=== PATIENT | male | born 1985 | race Caucasian/White ===

== ENCOUNTER 2016-04-18 18:11 | Emergency (ER) | payer MEDICAID ==
[~2016-04-18] VITALS: Ht 190.5 cm; Wt 112.3 kg
[~2016-04-18 18:11] MED LIST: AMOX500T PO; ZANT150T2 PO
[2016-04-18 18:20] VITALS: BP 141/77; PULSE 76; RESP 16; TEMP 98; O2SAT 98
--- NOTE | 2016-04-19 14:29 | EKG ---
Date Performed: 04/18/2016 Time Performed: 18:22:16 PTAGE: 30 years EKG: Sinus rhythm Normal ECG NO PREVIOUS TRACING DOCTOR: Mitch Macdonald Interpretating Date/Time 04/19/2016 14:26:41
== END 2016-04-18 20:05 | disposition left against medical advice (07) ==
LOC: PHED 18:11
DX: R05 Cough (principal); F17.200 Nicotine dependence, unspecified, uncomplicated
CPT/HCPCS: 93005; 99281

== ENCOUNTER 2016-06-20 18:47 | Emergency (ER) | payer MEDICAID ==
[~2016-06-20] VITALS: Ht 190.5 cm; Wt 112.0 kg
[2016-06-20 18:57] VITALS: BP 119/75; PULSE 78; RESP 16; TEMP 98.5; O2SAT 96
--- NOTE | 2016-06-20 20:39 | PD ---
HPI Chief Complaint: Injury Time Seen by Provider: 20:37 Travel History International Travel<30 days: No Contact w/Intl Traveler<30days: No Traveled to known affect area: No History of Present Illness HPI Patient comes in complaining of right hand pain after punching a 2 x 4 shortly prior to arrival. Patient states he was trying show this child how to throw punch when he hit 2 x 4. Patient applied ice prior coming emergency department. Patient uncertain of his last shot. Patient reports aching pain over his third metacarpophalangeal joint right upper extremity that radiates proximally. Pain is worse with certain movement and palpation. Denies any numbness or tingling. PFSH Past Medical History Diminished Hearing: No Gastrointestinal Disorders: Yes (IBS) GERD: Yes Immunizations Current: Yes Tetanus Vaccination: Unknown Influenza Vaccination: No ?: Not Social History Alcohol Use: Yes (RARE) Tobacco Use: Yes (2 PPD) Substance Use: No Allergies-Medications (Allergen,Severity, Reaction): Coded Allergies: Nonsteroidal Anti-Inflammatory Agts (Verified Adverse Reaction, Severe, HAS IBS AND NOT SUPPOSE TO TAKE, 06/20/16) Reported Meds & Prescriptions Reported Meds & Active Scripts Active Zantac (Ranitidine HCl) 150 Mg Tab 150 Mg PO BID Reported Amoxicillin 500 Mg Tab 500 Mg PO BID Review of Systems Except as stated in HPI: all other systems reviewed are Neg Physical Exam Narrative GENERAL: Well-developed, well nourished, in no acute distress, and non-ill appearing. SKIN: Superficial abrasion noted over right hand third knuckle. Does not appear consistent with a fight bite. HEAD: Atraumatic. Normocephalic. EYES: Pupils equal and round. EOMI. No scleral icterus. No injection or drainage. ENT: No nasal bleeding or discharge. Mucous membranes pink and moist. NECK: Trachea midline. Supple. No nuclear rigidity. CARDIOVASCULAR: Radial pulses 2+, tach, and equal bilaterally. Capillary refill less than 2 seconds. RESPIRATORY: No accessory muscle use. No respiratory distress MUSCULOSKELETAL: No obvious deformities. No clubbing. No cyanosis. No edema. Full range of motion. Wrist: FROM and equal BL with passive flexion, extension, and pronation/supination. Capillary refill less than 2 seconds distal to injury and equal BL. FROM distal to injury and equal BL. Strength distal to injury equal BL. NV intact distal to injury. Flexion and extension of thumb equal BL. Equal strength and movement with abduction/adductions of BL fingers. 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 No tenderness to the anatomical snuffbox. Patient reports tenderness to palpation over right upper extremity third metacarpophalangeal joint. NEUROLOGICAL: Awake and alert. No obvious cranial nerve deficits. Motor grossly within normal limits. Normal speech. PSYCHIATRIC: Appropriate mood and affect; insight and judgment normal. Data Data Last Documented VS Vital Signs Date Time Temp Pulse Resp B/P Pulse Ox O2 Delivery O2 Flow Rate FiO2 06/20/16 18:57 98.5 78 16 119/75 96 Orders Hand, Complete ([id number]) (06/20/16 ) Ice/Cold Pack (06/20/16 20:03) Wound Care (06/20/16 20:39) Tetanus/Diphtheria Tox Adult (Tetanus/Di (06/20/16 20:45) MDM Medical Decision Making Medical Screen Exam Complete: Yes Emergency Medical Condition: Yes Differential Diagnosis Fracture, strain, contusion, other Narrative Course The patient appears to have suffered a contusion of the extremity. There is no clinical evidence to suspect bony injury by exam. Radiographic examination revealed no fracture seen at this time. The patient has full range of motion on active and passive motions. There is no significant edema. There is no proximal or distal joint effusion. The distal extremity appears neurovascularly intact, without evidence of neurovascular injury nor compartment syndrome. Tendon exam also was intact. The patient was discharged and given warnings for vascular compromise. The patient is to follow up with their regular physician or hand surgeon. The patient agrees with plan. The patient suffered abrasion. The abrasions are very superficial and non- repairable. There was no evidence to suggest foreign bodies. Visual and tactile exams were unremarkable. There was no evidence of neurovascular injury as well. The patients wound/s were cleaned and dressed. The patient was given signs and symptom warnings for infection, such as increasing pain, redness, swelling, associated heat, pus or fever. The patient was given instructions for timely follow up. The patient agreed with plan of care. Patient in no obvious distress upon re-evaluation. All pertinent Radiology result(s) discussed with patient. Any questions/concerns in reference to patient diagnosis/condition discussed and clarified prior to patient's discharge. Reinforced sheer importance of close follow up with patient's primary physician or primary care clinic and/or hand surgeon. Instructed patient to return to ED immediately, if symptoms return/worsen. Pt showed understanding of above instructions. Further instructions and recommendations were detailed in discharge paperwork. Pt ambulated without difficulty out of ED at discharge. Diagnosis Primary Impression: Contusion of right hand, initial encounter Additional Impression: Abrasion Referrals: Ramiro Larios III, MD Patient Instructions: Abrasion (GEN), Contusion in Adults (ED), General Instructions Additional Instructions: Follow-up with your primary care physician and/or hand surgeon in 2-3 days for reevaluation. Apply ice to affected area 20 minutes prior to his needed for pain. Use [id number] Tylenol as needed for pain. Follow instructions on the packaging. Wear German wrap as needed for comfort. Keep wound dry and clean as possible using soap and water. Use Neosporin to promote healing. Return to the emergency department if symptoms get worse. Disposition: 01 DISCHARGE HOME Condition: Stable Chuy Browne Jun 20, 2016 20:39
[2016-06-20] MEDS ORDERED: TETANUS/DIPHTHERIA TOXOID ADULT 0.5 ML VIAL IM ONE (20:45)
--- NOTE | 2016-06-20 21:21 | RADHPO ---
EXAM DATE/TIME: 06/20/2016 20:43 [facility] COMPARISON: No previous studies available for comparison. INDICATIONS : Right hand pain from injury today. MEDICAL HISTORY : Irritable bowel syndrome. SURGICAL HISTORY : None. ENCOUNTER: Initial ACUITY: 1 day PAIN SCORE: 8/10 LOCATION: Right Hand FINDINGS: Three view examination of the right hand demonstrates no soft tissue swelling, dislocation, or fractu re. The carpal bones appear intact. The interphalangeal and metacarpophalangeal joints are intact. Bony mineralization is normal. CONCLUSION: Negative exam. Denny Rowland MD on June 20, 2016 at 21:19 Board Certified Radiologist. This report was verified electronically.
== END 2016-06-20 21:36 | disposition home or self-care (01) ==
LOC: PHED 18:47 → PHEFT 21:36
DX: S60.221A Contusion of right hand, initial encounter (principal); S60.511A Abrasion of right hand, initial encounter; F17.210 Nicotine dependence, cigarettes, uncomplicated; Z23 Encounter for immunization; K21.9 Gastro-esophageal reflux disease without esophagitis; K58.9 Irritable bowel syndrome, unspecified; W22.8XXA Striking against or struck by other objects, initial encounter; Y93.89 Activity, other specified; Y92.9 Unspecified place or not applicable; Y99.8 Other external cause status
CPT/HCPCS: 73130; 90471; 90714

== ENCOUNTER 2016-08-09 10:48 | Emergency (ER) | payer MEDICAID ==
[~2016-08-09] VITALS: Ht 190.5 cm; Wt 112.0 kg
[2016-08-09 10:51] VITALS: BP 129/82; PULSE 76; RESP 16; TEMP 97.8; O2SAT 97
--- NOTE | 2016-08-09 11:25 | PD ---
HPI Chief Complaint: Headache Time Seen by Provider: 11:12 Travel History International Travel<30 days: No Contact w/Intl Traveler<30days: No Traveled to known affect area: No History of Present Illness HPI 30yo M with no PMH presents to the ED with c/o right sided headache for 3 days. Pain is right sided, starts from occipital region and radiates to the front. States it is constant. +Photophobia. Feels sharp. Right arm also feels weaker than left arm. Denies any fever, stiff neck, chest pain, sob, n/v, abdominal pain, weakness in leg, or numbness. Took acetaminophen without relief. PFSH Past Medical History Diminished Hearing: No Gastrointestinal Disorders: Yes (IBS) GERD: Yes Immunizations Current: Yes Social History Alcohol Use: Yes (RARE) Tobacco Use: Yes (1PPD) Substance Use: No Allergies-Medications (Allergen,Severity, Reaction): Coded Allergies: Nonsteroidal Anti-Inflammatory Agts (Verified Adverse Reaction, Severe, HAS IBS AND NOT SUPPOSE TO TAKE, 08/09/16) Reported Meds & Prescriptions Reported Meds & Active Scripts Active No Active Prescriptions or Reported Medications Review of Systems Except as stated in HPI: all other systems reviewed are Neg Physical Exam Narrative GENERAL: 30yo M in mild distress. SKIN: Focused skin assessment warm/dry. HEAD: Atraumatic. Normocephalic. EYES: Pupils equal and round at 3mm bilaterally. EOMI. No scleral icterus. No injection or drainage. ENT: No nasal bleeding or discharge. Mucous membranes pink and moist. NECK: Trachea midline. No JVD. CARDIOVASCULAR: Regular rate and rhythm. No murmur appreciated. RESPIRATORY: No accessory muscle use. Clear to auscultation. Breath sounds equal bilaterally. GASTROINTESTINAL: Abdomen soft, non-tender, nondistended. MUSCULOSKELETAL: No obvious deformities. No clubbing. No cyanosis. No edema. NEUROLOGICAL: Awake and alert. No obvious cranial nerve deficits. Motor grossly within normal limits. 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 No weakness in right leg. Sensation intact. Normal speech. PSYCHIATRIC: Appropriate mood and affect; insight and judgment normal. Data Data Last Documented VS Vital Signs Date Time Temp Pulse Resp B/P Pulse Ox O2 Delivery O2 Flow Rate FiO2 08/09/16 10:51 97.8 76 16 129/[address] Brain W/O Iv Contrast(Rout) (08/09/16 ) Prochlorperazine Inj (Compazine Inj) (08/09/16 11:30) MDM Medical Decision Making Medical Screen Exam Complete: Yes Emergency Medical Condition: Yes Differential Diagnosis Migraine headache vs. tension headache vs. cluster headache vs. intracranial mass Narrative Course 30yo M with right sided headache that sounds like migraine or tension headache. Pt given compazine 10mg IV and reevaluated at bedside. States headache has completely resolved. Right side weakness has resolved as well. CT brain negative. Explained to patient that I have low suspicion for subarachnoid hemorrhage but I cannot rule it out without lumbar puncture because the headache has been there for 3 days ago. Pt refusing lumbar puncture. Strict return precautions given. Diagnosis Primary Impression: Headache Qualified Code: R51 - Acute nonintractable headache, unspecified headache type Patient Instructions: General Instructions Departure Forms: Tests/Procedures Additional Instructions: Please follow up with your PMD. Return to the ED if headache returns. Med/Other Pt SpecificInfo: No Change to Meds Scripts No Active Prescriptions or Reported Meds Disposition: 01 DISCHARGE HOME Condition: Stable WheelerEvelyne MARTINS Aug 09, 2016 11:25
[2016-08-09] MEDS ORDERED: PROCHLORPERAZINE INJ 10 MG/2 ML VIAL IV PUSH ONE (11:30)
--- NOTE | 2016-08-09 11:52 | RADHPO ---
EXAM DATE/TIME: 08/09/2016 11:34 [facility] COMPARISON: CT BRAIN W/O CONTRAST, October 22, 2013, 19:19. INDICATIONS : Right sided headache. RADIATION DOSE: 65.23 CTDIvol (mGy) MEDICAL HISTORY : Gastroesophageal reflux disease. SURGICAL HISTORY : None. ENCOUNTER: Initial ACUITY: 1 day PAIN SCALE: 4/10 LOCATION: Right cranial TECHNIQUE: Multiple contiguous axial images were obtained of the head. Using automated exposure control and adj ustment of the mA and/or kV according to patient size, radiation dose was kept as low as reasonably a chievable to obtain optimal diagnostic quality images. FINDINGS: CEREBRUM: The ventricles are normal for age. No evidence of midline shift, mass lesion, hemorrhage or acute in farction. No extra-axial fluid collections are seen. POSTERIOR FOSSA: The cerebellum and brainstem are intact. The 4th ventricle is midline. The cerebellopontine angle i s unremarkable. EXTRACRANIAL: The visualized portion of the orbits is intact. SKULL: The calvaria is intact. No evidence of skull fracture. CONCLUSION: No acute disease. Rashel Arguello MD on August 09, 2016 at 11:49 Board Certified Radiologist. This report was verified electronically.
== END 2016-08-09 12:48 | disposition home or self-care (01) ==
LOC: PHEFT 10:48
DX: R51 Headache (principal); F17.210 Nicotine dependence, cigarettes, uncomplicated
CPT/HCPCS: 70450; 96374; 99285; J0780

== ENCOUNTER 2016-08-18 18:50 | Emergency (ER) | payer MEDICAID ==
[~2016-08-18] VITALS: Ht 190.5 cm; Wt 113.0 kg
[2016-08-18 19:25] VITALS: BP 131/80; PULSE 67; RESP 18; TEMP 98.2; O2SAT 97
[2016-08-18] MEDS ORDERED: SODIUM CHLOR 0.9% 1000 ML INJ 1,000 ML IV SCH (20:09)
[2016-08-18] MEDS ORDERED: METOCLOPRAMIDE HCL 10 MG/2 ML VIAL IV PUSH ONE (20:15)
[2016-08-18] MEDS ORDERED: SODIUM CHLORIDE 0.9% FLUSH 10 ML FLUSH IV FLUSH PRN (20:15)
--- NOTE | 2016-08-18 20:16 | PD ---
HPI Chief Complaint: Headache Time Seen by Provider: 20:04 Travel History International Travel<30 days: No Contact w/Intl Traveler<30days: No Traveled to known affect area: No History of Present Illness HPI 30-year-old male here for evaluation of headache and neck pain. The patient reports that symptoms started about a week ago while having intercourse with his girlfriend. States that his pain starts in his neck and radiates up into his head. Pain in his head is diffuse, but right is greater than left, sharp and pressure-like, moderate to severe. Pain is associated with photophobia. He has been taking Tylenol without relief in pain. Chart review shows that the patient was seen in the emergency department on 08/09/[address] head which was normal. He was given Compazine at that time with complete resolution in symptoms. The ER physician at that time told him that she would need to do a lumbar puncture to rule out subarachnoid bleed. The patient declined LP at that time. He has not had any fevers. PFSH Past Medical History Diminished Hearing: No Gastrointestinal Disorders: Yes (IBS) GERD: Yes Immunizations Current: Yes Tetanus Vaccination: < 5 Years Influenza Vaccination: No ?: Not Past Surgical History Surgical History: No Previous Surgery Social History Alcohol Use: Yes (RARE) Tobacco Use: Yes (1PPD) Substance Use: No Allergies-Medications (Allergen,Severity, Reaction): Coded Allergies: Nonsteroidal Anti-Inflammatory Agts (Verified Adverse Reaction, Severe, HAS IBS AND NOT SUPPOSE TO TAKE, 08/18/16) Reported Meds & Prescriptions Reported Meds & Active Scripts Active No Active Prescriptions or Reported Medications Review of Systems Except as stated in HPI: all other systems reviewed are Neg Physical Exam Narrative GENERAL: Well-developed, well-nourished, no apparent distress. SKIN: Focused skin assessment warm/dry. No petechiae. No rash. HEAD: Atraumatic. Normocephalic. EYES: Pupils equal and round. No scleral icterus. No injection or drainage. ENT: No nasal bleeding or discharge. Mucous membranes pink and moist. NECK: Trachea midline. No JVD. No nuchal rigidity. CARDIOVASCULAR: Regular rate and rhythm. No murmur appreciated. RESPIRATORY: No accessory muscle use. Clear to auscultation. Breath sounds equal bilaterally. GASTROINTESTINAL: Abdomen soft, non-tender, nondistended. MUSCULOSKELETAL: No obvious deformities. No clubbing. No cyanosis. No edema. NEUROLOGICAL: Awake and alert. No obvious cranial nerve deficits. Motor grossly within normal limits. Normal speech. PSYCHIATRIC: Appropriate mood and affect; insight and judgment normal. Data Data Last Documented VS Vital Signs Date Time Temp Pulse Resp B/P Pulse Ox O2 Delivery O2 Flow Rate FiO2 08/18/16 20:17 96 Room Air 08/18/16 19:25 98.2 67 18 131/80 Orders Complete Blood Count With Diff (08/18/16 20:09) Comprehensive Metabolic Panel (08/18/16 20:09) Prothrombin Time / Inr (Pt) (08/18/16 20:09) Act Partial Throm Time (Ptt) (08/18/16 20:09) Iv Access Insert/Monitor (08/18/16 20:09) Ecg Monitoring (08/18/16 20:09) Oximetry (08/18/16 20:09) Sodium Chlor 0.9% 1000 Ml Inj (Ns 1000 M (08/18/16 20:09) Sodium Chloride 0.9% Flush (Ns Flush) (08/18/16 20:15) Metoclopramide Inj (Reglan Inj) (08/18/16 20:15) Cta Brain W Iv Contrast W 3d (08/18/16 ) Cta Neck W Iv Contrast W 3d (08/18/16 ) Ct Brain W/O Iv Contrast(Rout) (08/18/16 ) Morphine Inj (Morphine Inj) (08/18/16 21:30) Iohexol 350 Inj (Omnipaque 350 Inj) (08/18/16 21:30) Labs Laboratory Tests Test 08/18/16 20:25 White Blood Count 5.4 TH/MM3 Red Blood Count 4.89 MIL/MM3 Hemoglobin 14.8 GM/DL Hematocrit 43.6 % Mean Corpuscular Volume 89.0 FL Mean Corpuscular Hemoglobin 30.3 PG Mean Corpuscular Hemoglobin 34.1 % Concent Red Cell Distribution Width 11.7 % Platelet Count 237 TH/MM3 Mean Platelet Volume 6.8 FL Neutrophils (%) (Auto) 44.1 % Lymphocytes (%) (Auto) 40.5 % Monocytes (%) (Auto) 10.5 % Eosinophils (%) (Auto) 4.2 % Basophils (%) (Auto) 0.7 % Neutrophils # (Auto) 2.4 TH/MM3 Lymphocytes # (Auto) 2.2 TH/MM3 Monocytes # (Auto) 0.6 TH/MM3 Eosinophils # (Auto) 0.2 TH/MM3 Basophils # (Auto) 0.0 TH/MM3 CBC Comment DIFF FINAL Differential Comment Prothrombin Time 10.9 SEC Prothromb Time International 1.0 RATIO Ratio Activated Partial 29.8 SEC Thromboplast Time Sodium Level 140 MEQ/L Potassium Level 4.0 MEQ/L Chloride Level 105 MEQ/L Carbon Dioxide Level 28.7 MEQ/L Anion Gap 6 MEQ/L Blood Urea Nitrogen 8 MG/DL Creatinine 0.84 MG/DL Estimat Glomerular Filtration 107 ML/MIN Rate Random Glucose 91 MG/DL Calcium Level 8.7 MG/DL Total Bilirubin 0.5 MG/DL Aspartate Amino Transf 17 U/L (AST/SGOT) Alanine Aminotransferase 40 U/L (ALT/SGPT) Alkaline Phosphatase 54 U/L Total Protein 7.1 GM/DL Albumin 4.0 GM/DL MDM Medical Decision Making Medical Screen Exam Complete: Yes Emergency Medical Condition: Yes Medical Record Reviewed: Yes Differential Diagnosis Tension headache, cluster headache, migraine headache, SAH, meningitis/ encephalitis less likely Narrative Course Vital signs show heart rate 67, blood pressure 131/80, pulse ox 97% on room air , oral temp of 98.2F. CBC is unremarkable. CMP is unremarkable. CT head: No acute abnormality is identified. CTA brain: No acute intracranial vascular abnormality. CTA neck: No abnormality is identified in the neck arterial vasculature. She was made aware of all findings. He is feeling much better after receiving a liter of normal saline IV, IV morphine, and IV Reglan. He states he would like to go home to sleep in his own bed. I counseled him on smoking cessation. At this point I do not believe that there is a serious etiology such as SAH/ meningitis/encephalitis for his headache. He is afebrile and there is no nuchal rigidity on exam. He is overall very well-appearing and appears very comfortable. He'll be discharged home with instructions to follow-up with a primary care physician this week. He was informed on when to return to the emergency department. He verbalizes understanding and agreement with plan. Diagnosis Primary Impression: Headache Qualified Code: R51 - Nonintractable headache, unspecified chronicity pattern , unspecified headache type Referrals: Primary Care Physician 3 days Additional Instructions: Follow-up with a primary care physician this week. Return to the emergency department for worsening symptoms or any other concerns. Scripts Nyxohkbmyy-Qygrwxbrxjhxh-Webuwpdx (Fioricet)50-300-40 Mg Cap1-2 Cap PO Q6H PRN ( HEADACHE) #15 CAP Ref 0 Prov:Lonnie Ramos MD 08/18/16 Disposition: 01 DISCHARGE HOME Condition: Stable Lonnie Ramos MD Aug 18, 2016 20:16
[2016-08-18 20:17] VITALS: O2SAT 96
[2016-08-18 20:28] LABS: AUTOMATED NEUTROPHIL # 2.4 TH/MM3 (1.8-7.7); BASOPHIL % 0.7 % (0.0-2.0); EOSINOPHIL # 0.2 TH/MM3 (0-0.4); EOSINOPHIL % 4.2 % (0.0-4.0); HEMATOCRIT 43.6 % (39.0-51.0); HEMO FLAGS DIFF FINAL; LYMPH % 40.5 % (9.0-44.0); LYMPHOCYTE # 2.2 TH/MM3 (1.0-4.8); MEAN CORPUSCULAR HEMOGLOBIN 30.3 PG (27.0-34.0); MEAN CORPUSCULAR HGB CONC 34.1 % (32.0-36.0); MONO % 10.5 % (0.0-8.0); NEUT % 44.1 % (16.0-70.0); PLATELET COUNT 237 TH/MM3 (150-450); RED BLOOD COUNT 4.89 MIL/MM3 (4.50-5.90); RED CELL DISTRIBUTION WIDTH 11.7 % (11.6-17.2); WHITE BLOOD COUNT 5.4 TH/MM3 (4.0-11.0)
[2016-08-18 20:38] LABS: CHLORIDE 105 MEQ/L (98-107); SODIUM (NA) 140 MEQ/L (136-145)
[2016-08-18 20:42] LABS: ANION GAP 6 MEQ/L (5-15); BICARBONATE 28.7 MEQ/L (21.0-32.0); BLOOD UREA NITROGEN 8 MG/DL (7-18)
[2016-08-18 20:43] LABS: APTT (PATIENT) 29.8 SEC (24.3-30.1); PROTHROMBIN TIME - PATIENT 10.9 SEC (9.8-11.6)
[2016-08-18 20:44] LABS: ALT (GPT) 40 U/L (12-78)
[2016-08-18 20:45] LABS: AST (GOT) 17 U/L (15-37); GLOMERULAR FILTRATION RATE 107 ML/MIN (>89)
[2016-08-18 20:46] LABS: TOTAL BILIRUBIN ADULT 0.5 MG/DL (0.2-1.0)
[2016-08-18 20:47] LABS: ALKALINE PHOSPHATASE 54 U/L (45-117)
[2016-08-18] MEDS ORDERED: IOHEXOL 350 MG/ML 10 ML VIAL (for RAD DIAG) IV ONE ×2 (21:29→21:30)
[2016-08-18] MEDS ORDERED: MORPHINE SULFATE 4 MG/ML INJ IV PUSH ONE (21:30)
--- NOTE | 2016-08-18 21:44 | RADRPT ---
EXAM DATE/TIME: 08/18/2016 20:58 [facility] COMPARISON: CT BRAIN W/O CONTRAST, August 09, 2016, 11:34. INDICATIONS : Head and neck pain. RADIATION DOSE: 61.93 CTDIvol (mGy) MEDICAL HISTORY : None SURGICAL HISTORY : None. ENCOUNTER: Initial ACUITY: 1 week PAIN SCALE: 8/10 LOCATION: cranial TECHNIQUE: Multiple contiguous axial images were obtained of the head. Using automated exposure control and adj ustment of the mA and/or kV according to patient size, radiation dose was kept as low as reasonably a chievable to obtain optimal diagnostic quality images. FINDINGS: CEREBRUM: The ventricles are normal. No evidence of midline shift, mass lesion, hemorrhage or acute infarction . No extra-axial fluid collections are seen. POSTERIOR FOSSA: The cerebellum and brainstem are intact. The 4th ventricle is midline. The cerebellopontine angle i s unremarkable. EXTRACRANIAL: Visualized sinuses are clear. SKULL: The calvaria is intact. No evidence of skull fracture. CONCLUSION: No acute abnormality is identified. Carl Bowden MD on August 18, 2016 at 21:39 Board Certified Radiologist. This report was verified electronically.
[2016-08-18 21:53] VITALS: RESP 20
--- NOTE | 2016-08-18 22:01 | RADRPT ---
EXAM DATE/TIME: 08/18/2016 20:58 [facility] COMPARISON: No previous studies available for comparison. INDICATIONS : Head and neck pain. IV CONTRAST: 75 cc Omnipaque 350 (iohexol) IV ; Cumulative dose for multiple exams. RADIATION DOSE: 43.12 CTDIvol (mGy) ; Combined studies MEDICAL HISTORY : None SURGICAL HISTORY : None. ENCOUNTER: Initial ACUITY: 1 week PAIN SCALE: 8/10 LOCATION: cranial TECHNIQUE: Volumetric scanning was performed using a multi-row detector CT scanner. The data was post processed with a variety of visualization algorithms including full volume maximum intensity projection, multi -planar sliding thin slab reformation, curved planar reformation, and surface rendering techniques. Using automated exposure control and adjustment of the mA and/or kV according to patient size, radiat ion dose was kept as low as reasonably achievable to obtain optimal diagnostic quality images. FINDINGS: There is excellent visualization of the major intracranial arteries out to the second-order branch ve ssels. There is no evidence for aneurysm, vessel truncation or stenosis, and no evidence for vascula r malformation. Left vertebral artery is dominant. CONCLUSION: No intracranial vascular abnormality is identified. Carl Bowden MD on August 18, 2016 at 21:56 Board Certified Radiologist. This report was verified electronically.
--- NOTE | 2016-08-18 22:03 | RADRPT ---
EXAM DATE/TIME: 08/18/2016 20:58 [facility] COMPARISON: No previous studies available for comparison. INDICATIONS : Head and neck pain. IV CONTRAST: 75 cc Omnipaque 350 (iohexol) IV ; Cumulative dose for multiple exams. RADIATION DOSE: 43.13 CTDIvol (mGy) ; Combined studies MEDICAL HISTORY : None SURGICAL HISTORY : None. ENCOUNTER: Initial ACUITY: 1 week PAIN SCALE: 8/10 LOCATION: neck Elevated flow velocities and ICA/CCA ratios have been found to correlate with increased degrees of vessel stenosis, calculated as percentage of diameter relative to a normal segment of distal ICA/CCA. TECHNIQUE: Volumetric scanning was performed using a multirow detector CT scanner. The data was post processed with a variety of visualization algorithms including full-volume maximum intensity projection, multip lanar sliding thin-slab reformation, curved-planar reformation, and surface-rendering techniques. Us ing automated exposure control and adjustment of the mA and/or kV according to patient size, radiatio n dose was kept as low as reasonably achievable to obtain optimal diagnostic quality images. FINDINGS: AORTIC ARCH: There is a common origin of the left common carotid artery and brachiocephalic artery. No evidence o f ostial narrowing. RIGHT CAROTID: The common carotid artery is within normal limits. The carotid bulb has a normal configuration withou t ulceration or narrowing. The internal carotid artery lumen is smooth without stenosis. The externa l carotid artery is intact. LEFT CAROTID: The common carotid artery is within normal limits. The carotid bulb has a normal configuration witho ut ulceration or narrowing. The internal carotid artery lumen is smooth without stenosis. The exter nal carotid artery is intact. VERTEBRALS: Left vertebral artery is dominant. No stenotic lesions are seen. CONCLUSION: No abnormality is identified in the neck arterial vasculature. Carl Bowden MD on August 18, 2016 at 21:59 Board Certified Radiologist. This report was verified electronically.
[2016-08-18] MEDS ORDERED: BUTA1CAP PO (22:27)
[2016-08-18 22:40] VITALS: BP 130/85
== END 2016-08-18 22:47 | disposition home or self-care (01) ==
LOC: PHED 18:50
DX: R51 Headache (principal); M54.2 Cervicalgia; H53.149 Visual discomfort, unspecified; K58.9 Irritable bowel syndrome, unspecified; F17.210 Nicotine dependence, cigarettes, uncomplicated
CPT/HCPCS: 70450; 70496; 70498; 80053; 85025; 85610; 85730; 96361; 96374; 96375; 99285; J2270; J2765; J7030; Q9967

== ENCOUNTER 2017-01-03 05:17 | Emergency (ER) | payer MEDICAID ==
[~2017-01-03] VITALS: Ht 190.5 cm; Wt 109.4 kg
[~2017-01-03 05:17] MED LIST changes: -AMOX500T PO; +BUTA1CAP PO; -ZANT150T2 PO
[2017-01-03 05:27] VITALS: BP 128/82; PULSE 80; RESP 16; TEMP 98.3; O2SAT 90
--- NOTE | 2017-01-03 06:17 | PD ---
HPI Chief Complaint: Flank/Kidney Pain Time Seen by Provider: 06:11 Travel History International Travel<30 days: No Contact w/Intl Traveler<30days: No Traveled to known affect area: No History of Present Illness HPI 31-year-old male presents to the emergency department by EMS transport for complaint of right flank pain radiating to the right groin. Patient states he' s had pain intermittently over the past 2 weeks that awakened him from sleep this morning. Patient rates pain as moderate to severe. Patient denies hematuria. Patient denies history of kidney stones. Patient denies referred pain to the lower extremities. Patient does not voice complaint of lower extremity numbness tingling or weakness saddle anesthesia or bladder or bowel dysfunction. Patient's had no fever or chills. Patient is unable to identify exacerbating or alleviating factors. PFSH Past Medical History Narrative Medical IBS GERD back use alcohol use; nursing notes reviewed Diminished Hearing: No Gastrointestinal Disorders: Yes (IBS) GERD: Yes Immunizations Current: Yes Social History Alcohol Use: Yes (RARE) Tobacco Use: Yes (1PPD) Substance Use: No Allergies-Medications (Allergen,Severity, Reaction): Coded Allergies: diclofenac (Unverified Adverse Reaction, Severe, HAS IBS AND NOT SUPPOSE TO TAKE, 01/03/17) etodolac (Unverified Adverse Reaction, Severe, HAS IBS AND NOT SUPPOSE TO TAKE, 01/03/17) flurbiprofen (Unverified Adverse Reaction, Severe, HAS IBS AND NOT SUPPOSE TO TAKE, 01/03/17) ibuprofen (Unverified Adverse Reaction, Severe, HAS IBS AND NOT SUPPOSE TO TAKE, 01/03/17) indomethacin (Unverified Adverse Reaction, Severe, HAS IBS AND NOT SUPPOSE TO TAKE, 01/03/17) ketoprofen (Unverified Adverse Reaction, Severe, HAS IBS AND NOT SUPPOSE TO TAKE, 01/03/17) ketorolac (Unverified Adverse Reaction, Severe, HAS IBS AND NOT SUPPOSE TO TAKE, 01/03/17) naproxen (Unverified Adverse Reaction, Severe, HAS IBS AND NOT SUPPOSE TO TAKE, 01/03/17) oxaprozin (Unverified Adverse Reaction, Severe, HAS IBS AND NOT SUPPOSE TO TAKE, 01/03/17) Reported Meds & Prescriptions Reported Meds & Active Scripts Active Zofran Odt (Ondansetron Odt) 4 Mg Tab 4 Mg SL Q6HR PRN Tramadol (Tramadol HCl) 50 Mg Tab 50 Mg PO Q6H PRN Flomax (Tamsulosin HCl) 0.4 Mg Cap 0.4 Mg PO HS 7 Days Review of Systems Except as stated in HPI: all other systems reviewed are Neg General / Constitutional: No: Fever, Chills HENT: No: Congestion Cardiovascular: No: Chest Pain or Discomfort Respiratory: No: Shortness of Breath Gastrointestinal: No: Nausea, Vomiting, Diarrhea, Abdominal Pain Genitourinary: Positive: Flank Pain, No: Urgency, Frequency, Dysuria, Hematuria Musculoskeletal: No: Myalgias, Arthralgias Skin: No Rash Neurologic: No: Weakness Psychiatric: No: Anxiety Endocrine: No: Heat Intolerance Hematologic/Lymphatic: No: Easy Bruising Physical Exam Narrative GENERAL: Well developed well-nourished male in no acute distress no respiratory distress SKIN: Warm and dry. HEAD: Normocephalic. EYES: No scleral icterus. No injection or drainage. NECK: Supple, trachea midline. No JVD or lymphadenopathy. CARDIOVASCULAR: Regular rate and rhythm without murmurs, gallops, or rubs. RESPIRATORY: Breath sounds equal bilaterally. No accessory muscle use. GASTROINTESTINAL: Abdomen soft, non-tender, nondistended. MUSCULOSKELETAL: No cyanosis, or edema. BACK: Nontender without obvious deformity. Right-sided CVA tenderness. Data Data Last Documented VS Vital Signs Date Time Temp Pulse Resp B/P (MAP) Pulse Ox O2 Delivery O2 Flow Rate FiO2 01/03/17 06:29 85 20 01/03/17 05:27 98.3 128/82 (97) [address] Abd/Pel W/O Iv Contrast (01/03/17 ) Urinalysis - C+S If Indicated (01/03/17 06:11) Tramadol (Ultram) (01/03/17 07:00) Ondansetron Odt (Zofran Odt) (01/03/17 07:00) Tamsulosin (Flomax) (01/03/17 07:00) Labs Laboratory Tests Test 01/03/17 06:05 Urine Color YELLOW Urine Turbidity SLIGHT Urine pH 5.5 Urine Specific Dr[place] 1.026 Urine Protein TRACE mg/dL Urine Glucose (UA) NEG mg/dL Urine Ketones TRACE mg/dL Urine Occult Blood MOD Urine Nitrite NEG Urine Bilirubin NEG Urine Leukocyte Esterase NEG Urine RBC 10-14 /hpf Urine Squamous Epithelial Cells 0-5 /hpf Urine Calcium Oxalate Crystals MOD /hpf Urine Amorphous Sediment Urine Mucus MOD /lpf Microscopic Urinalysis Comment CULT NOT INDICATED MDM Medical Decision Making Medical Screen Exam Complete: Yes Emergency Medical Condition: Yes Medical Record Reviewed: Yes Interpretation(s) Urinalysis: Red blood cells blood calcium also crystals; culture not indicated Last Impressions Abdomen/Pelvis CT 01/03/17 0000 Signed Impressions: Service Date/Time: Tuesday, January 03, 2017 06:28 - CONCLUSION: 1. 1 mm right ureterovesical junction stone with mild hydronephrosis Félix Richards MD Vital Signs Date Time Temp Pulse Resp B/P (MAP) Pulse Ox O2 Delivery O2 Flow Rate FiO2 01/03/17 06:29 85 20 01/03/17 05:27 98.3 80 16 128/82 (97) 90 Differential Diagnosis Flank pain renal colic active uropathy UTI pyelonephritis Narrative Course Patient suspicious for ureterolithiasis with renal colic urinalysis specimen collected and CT abdomen and pelvis kidney stone protocol ordered CT is consistent with mild obstructive uropathy with 1 mm distal ureteral stone Patient administered tramadol 50 mg by mouth Zofran 4 mg by mouth and Lotemax 0.4 mg by mouth Urinalysis shows no evidence of infection Patient is encouraged to follow-up with urologist increase fluid hydration and return to the emergency department for any concerns patient is stable for outpatient management. Diagnosis Primary Impression: Renal colic on right side Additional Impression: Ureterolithiasis Referrals: Urologist as needed Patient Instructions: General Instructions Additional Instructions: Increase fluid hydration Strain urine Take medication as prescribed as needed for pain Take medication as prescribed as needed for nausea Take Flomax as prescribed Follow-up with urologist Return to the emergency department for any concerns or change in condition Med/Other Pt SpecificInfo: Prescription(s) given Scripts Ondansetron Odt (Zofran Odt) 4 Mg Tab 4 MG SL Q6HR Y for Nausea/Vomiting, #10 TAB 0 Refills Prov: Vicky Mendez MD 01/03/17 Tramadol (Tramadol) 50 Mg Tab 50 MG PO Q6H Y for PAIN, #10 TAB 0 Refills Prov: Vicky Mendez MD 01/03/17 Tamsulosin (Flomax) 0.4 Mg Cap 0.4 MG PO HS for Manage Prostate Problems for 7 Days, #7 CAP 0 Refills Prov: Vicky Mendez MD 01/03/17 Disposition: 01 DISCHARGE HOME Condition: Stable Vicky Mendez MD Jan 03, 2017 06:17
[2017-01-03 06:43] LABS: BLOOD, URINE MOD (NEG); GLUCOSE,URINE NEG (NEG); KETONE, URINE TRACE mg/dL (NEG); NITRITE,URINE NEG (NEG); PH, URINE 5.5 (5.0-8.5)
--- NOTE | 2017-01-03 06:46 | RADRPT ---
EXAM DATE/TIME: 01/03/2017 06:28 [facility] COMPARISON: No previous studies available for comparison. INDICATIONS : Right flank pain radiating into right groin. ORAL CONTRAST: No oral contrast ingested. RADIATION DOSE: 20.99 CTDIvol (mGy) MEDICAL HISTORY : Irritiable bowel syndrome. Gastroesophageal reflux disease. SURGICAL HISTORY : None. ENCOUNTER: Initial ACUITY: 1 day PAIN SCALE: 9/10 LOCATION: Right flank TECHNIQUE: Volumetric scanning of the abdomen and pelvis was performed. Using automated exposure control and ad justment of the mA and/or kV according to patient size, radiation dose was kept as low as reasonably achievable to obtain optimal diagnostic quality images. DICOM format image data is available electro nically for review and comparison. FINDINGS: The visualized portion of the liver and spleen are normal. The gallbladder and pancreas are unremarka ble. No intrahepatic or extrahepatic ductal dilatation is seen. The adrenal glands are unremarkable. The left kidney is unremarkable. There is mild right hydronephrosis and hydroureter with a 1 mm stone at the level of the ureterovesical junction Examination of the pelvis demonstrates no evidence of free fluid or pelvic mass. No abnormally enlarg ed inguinal or retroperitoneal lymph nodes are present. The bladder is unremarkable. CONCLUSION: 1. 1 mm right ureterovesical junction stone with mild hydronephrosis Félix Richards MD on January 03, 2017 at 6:42 Board Certified Radiologist. This report was verified electronically.
[2017-01-03] MEDS ORDERED: ZOFR4TAB3 SL (06:52)
[2017-01-03] MEDS ORDERED: TAMS5CAP PO (06:52)
[2017-01-03] MEDS ORDERED: TRAM50TA PO (06:52)
[2017-01-03 06:56] LABS: CALCIUM OXALATE CRYSTALS,URINE MOD /hpf; MUCUS URINE MOD /lpf (OCC); URINE COLOR YELLOW (YELLW/STRAW)
[2017-01-03 06:57] LABS: SQUAMOUS EPITHELIAL CELL URINE 0-5 /hpf (0-5)
[2017-01-03 06:58] LABS: COMMENT (UR) CULT NOT INDICATED; CULTURE IF INDICATED CULT NOT INDICATED
[2017-01-03] MEDS ORDERED: traMADol HCL 50 MG TAB PO ONE (07:00)
[2017-01-03] MEDS ORDERED: ONDANSETRON ODT 4 MG TAB PO ONE (07:00)
[2017-01-03] MEDS ORDERED: TAMSULOSIN HCL 0.4 MG CAP PO ONE (07:00)
== END 2017-01-03 07:09 | disposition home or self-care (01) ==
LOC: PHED 05:17
DX: N23 Unspecified renal colic (principal); N20.1 Calculus of ureter; F17.200 Nicotine dependence, unspecified, uncomplicated; Z87.19 Personal history of other diseases of the digestive system
CPT/HCPCS: 74176; 81001; 99284

== ENCOUNTER 2017-05-31 10:00 | Emergency (ER) | payer MEDICAID ==
[~2017-05-31] VITALS: Ht 190.5 cm; Wt 113.6 kg
[~2017-05-31 10:00] MED LIST changes: -BUTA1CAP PO; +TAMS5CAP PO; +TRAM50TA PO; +ZOFR4TAB3 SL
[2017-05-31 10:04] VITALS: BP 132/79; PULSE 53; RESP 18; TEMP 98.4; O2SAT 98
[2017-05-31] MEDS ORDERED: TYLE325T PO (10:08)
--- NOTE | 2017-05-31 11:22 | PD ---
HPI Chief Complaint: Headache Time Seen by Provider: 11:16 Travel History International Travel<30 days: No Contact w/Intl Traveler<30days: No Traveled to known affect area: No History of Present Illness HPI This 31-year-old male is complaining of headache. He gets fairly frequent headaches in fact he says he has a headache just about every day. Today's having a headache it is more severe. It is a bilateral throbbing headache associated with photophobia. There is no numbness or tingling. He has been seen here and has had repeated CT scans done as well as CTA PFS Past Medical History Diminished Hearing: No Gastrointestinal Disorders: Yes (IBS) GERD: Yes Headaches: Yes (chronic ) Immunizations Current: Yes Tetanus Vaccination: < 5 Years Influenza Vaccination: No ?: Not Past Surgical History Surgical History: No Previous Surgery Social History Alcohol Use: No Tobacco Use: Yes (1 PPD) Substance Use: No Allergies-Medications (Allergen,Severity, Reaction): Coded Allergies: diclofenac (Unverified Adverse Reaction, Severe, HAS IBS AND NOT SUPPOSE TO TAKE, 05/31/17) etodolac (Unverified Adverse Reaction, Severe, HAS IBS AND NOT SUPPOSE TO TAKE, 05/31/17) flurbiprofen (Unverified Adverse Reaction, Severe, HAS IBS AND NOT SUPPOSE TO TAKE, 05/31/17) ibuprofen (Unverified Adverse Reaction, Severe, HAS IBS AND NOT SUPPOSE TO TAKE, 05/31/17) indomethacin (Unverified Adverse Reaction, Severe, HAS IBS AND NOT SUPPOSE TO TAKE, 05/31/17) ketoprofen (Unverified Adverse Reaction, Severe, HAS IBS AND NOT SUPPOSE TO TAKE, 05/31/17) ketorolac (Unverified Adverse Reaction, Severe, HAS IBS AND NOT SUPPOSE TO TAKE, 05/31/17) naproxen (Unverified Adverse Reaction, Severe, HAS IBS AND NOT SUPPOSE TO TAKE, 05/31/17) oxaprozin (Unverified Adverse Reaction, Severe, HAS IBS AND NOT SUPPOSE TO TAKE, 05/31/17) Reported Meds & Prescriptions Reported Meds & Active Scripts Active Reported Tylenol (Acetaminophen) 325 Mg Tab 0 PO Q4H PRN Review of Systems General / Constitutional: No: Fever, Chills Eyes: No: Diploplia HENT: Positive: Headaches Cardiovascular: No: Chest Pain or Discomfort, Palpitations Respiratory: No: Cough, Shortness of Breath Gastrointestinal: No: Vomiting, Diarrhea Musculoskeletal: No: Myalgias Skin: No Rash, No Itching Neurologic: No: Weakness Psychiatric: No: Anxiety Endocrine: No: Heat Intolerance Physical Exam Narrative GENERAL: Well-developed male SKIN: Focused skin assessment warm/dry. HEAD: Atraumatic. Normocephalic. There is a small pustular lesion on the left posterior scalp EYES: Pupils equal and round. No scleral icterus. No injection or drainage. ENT: No nasal bleeding or discharge. Mucous membranes pink and moist. NECK: Trachea midline. No JVD. CARDIOVASCULAR: Regular rate and rhythm. No murmur appreciated. RESPIRATORY: No accessory muscle use. Clear to auscultation. Breath sounds equal bilaterally. GASTROINTESTINAL: Abdomen soft, non-tender, nondistended. Hepatic and splenic margins not palpable. MUSCULOSKELETAL: No obvious deformities. No clubbing. No cyanosis. No edema. NEUROLOGICAL: Awake and alert. No obvious cranial nerve deficits. Motor grossly within normal limits. Normal speech. PSYCHIATRIC: Appropriate mood and affect; insight and judgment normal. Data Data Last Documented VS Vital Signs Date Time Temp Pulse Resp B/P (MAP) Pulse Ox O2 Delivery O2 Flow Rate FiO2 05/31/17 10:29 Room Air 05/31/17 10:04 98.4 53 18 132/79 (96) 98 Orders Orders Sodium Chlor 0.9% 1000 Ml Inj (Ns 1000 M (05/31/17 11:30) Prochlorperazine Inj (Compazine Inj) (05/31/17 11:30) Diphenhydramine Inj (Benadryl Inj) (05/31/17 11:30) [facility] Medical Decision Making Medical Screen Exam Complete: Yes Emergency Medical Condition: Yes Medical Record Reviewed: Yes Differential Diagnosis Differential includes migraine headache, tension headache Narrative Course She has been given IV fluids and Compazine with good relief. He is stable for discharge Diagnosis Primary Impression: Headache Scripts Sumatriptan (Imitrex) 25 Mg Tab 25 MG PO ONCE Y for MIGRAINE HEADACHE, #10 TAB 0 Refills If a satisfactory response has not been obtained at 2 hours, a second dose may be administered Prov: Reyes Rehman MD 05/31/17 Disposition: 01 DISCHARGE HOME Condition: Stable Reyes Rehman MD May 31, 2017 11:22
[2017-05-31] MEDS ORDERED: diphenhydrAMINE HCL 50 MG/ML VIAL IV PUSH ONE (11:30)
[2017-05-31] MEDS ORDERED: SODIUM CHLOR 0.9% 1000 ML INJ 1,000 ML IV ONE (11:30)
[2017-05-31] MEDS ORDERED: PROCHLORPERAZINE INJ 10 MG/2 ML VIAL IV PUSH ONE (11:30)
[2017-05-31] MEDS ORDERED: IMIT25TA PO (12:12)
[2017-05-31 12:23] VITALS: BP 119/66
== END 2017-05-31 12:27 | disposition home or self-care (01) ==
LOC: PHED 10:00
DX: R51 Headache (principal); K21.9 Gastro-esophageal reflux disease without esophagitis; F17.200 Nicotine dependence, unspecified, uncomplicated; Z88.6 Allergy status to analgesic agent; Z87.19 Personal history of other diseases of the digestive system; Z88.8 Allergy status to other drugs, medicaments and biological substances
CPT/HCPCS: 96361; 96374; 96375; 99284; J0780; J1200; J7030

== ENCOUNTER 2017-06-03 12:41 | Emergency (ER) | payer MEDICAID ==
[~2017-06-03] VITALS: Ht 182.9 cm; Wt 111.0 kg
[~2017-06-03 12:41] MED LIST changes: +IMIT25TA PO; -TAMS5CAP PO; -TRAM50TA PO; +TYLE325T PO; -ZOFR4TAB3 SL
[2017-06-03 12:53] VITALS: BP 141/81; PULSE 87; RESP 16; TEMP 98.3; O2SAT 96
[2017-06-03] MEDS ORDERED: ONDANSETRON HCL 4 MG/2 ML VIAL IV PUSH ONE (13:00)
[2017-06-03] MEDS ORDERED: MORPHINE SULFATE 4 MG/ML INJ IV PUSH ONE (13:00)
[2017-06-03] MEDS ORDERED: SODIUM CHLORID 0.9% 500 ML INJ 500 ML IV ONE (13:00)
[2017-06-03] MEDS ORDERED: SODIUM CHLORIDE 0.9% FLUSH 10 ML FLUSH IVF PRN (13:00)
[2017-06-03] MEDS ORDERED: NITROGLYCERIN 0.4 MG SL 25 TABS/BTL SL ONE (13:00)
[2017-06-03] MEDS ORDERED: ASPIRIN 81 MG CHEW TAB PO ONE (13:00)
--- NOTE | 2017-06-03 13:04 | PD ---
HPI Chief Complaint: Chest Pain Time Seen by Provider: 12:50 Travel History International Travel<30 days: No Contact w/Intl Traveler<30days: No Traveled to known affect area: No History of Present Illness HPI The patient is a 31-year-old male who presents to emergency department for chest pain. The patient developed chest pain 2 hours prior to arrival. The patient was driving his car when he developed chest pain. The chest pain is substernal, pressure and dull, radiating to the left shoulder, and associated shortness of breath. He denies any nausea, vomiting, or diaphoresis. The patient does have a history of reflux, however, states the symptoms are different. The patient's typical reflux is substernal, radiating to the throat, and burning in quality. He does note recent shortness of breath with exertion. The patient does have a history of borderline hypertension and tobacco use at 2 packs per day. The patient is unsure if he has any history of diabetes or hyperlipidemia. He does have a family history of coronary artery disease with 2 grandfathers who from MIs and a mother with hypertension. The patient's symptoms are moderate without any current alleviating or exacerbating factors. PFSH Past Medical History Diminished Hearing: No Gastrointestinal Disorders: Yes (IBS) GERD: Yes Headaches: Yes (chronic ) Immunizations Current: Yes Tetanus Vaccination: < 5 Years Influenza Vaccination: No Social History Alcohol Use: No Tobacco Use: Yes (1 PPD) Substance Use: No Allergies-Medications (Allergen,Severity, Reaction): Coded Allergies: diclofenac (Unverified Adverse Reaction, Severe, HAS IBS AND NOT SUPPOSE TO TAKE, 06/03/17) etodolac (Unverified Adverse Reaction, Severe, HAS IBS AND NOT SUPPOSE TO TAKE, 06/03/17) flurbiprofen (Unverified Adverse Reaction, Severe, HAS IBS AND NOT SUPPOSE TO TAKE, 06/03/17) ibuprofen (Unverified Adverse Reaction, Severe, HAS IBS AND NOT SUPPOSE TO TAKE, 06/03/17) indomethacin (Unverified Adverse Reaction, Severe, HAS IBS AND NOT SUPPOSE TO TAKE, 06/03/17) ketoprofen (Unverified Adverse Reaction, Severe, HAS IBS AND NOT SUPPOSE TO TAKE, 06/03/17) ketorolac (Unverified Adverse Reaction, Severe, HAS IBS AND NOT SUPPOSE TO TAKE, 06/03/17) naproxen (Unverified Adverse Reaction, Severe, HAS IBS AND NOT SUPPOSE TO TAKE, 06/03/17) oxaprozin (Unverified Adverse Reaction, Severe, HAS IBS AND NOT SUPPOSE TO TAKE, 06/03/17) Reported Meds & Prescriptions Reported Meds & Active Scripts Active Imitrex (Sumatriptan Succinate) 25 Mg Tab 25 Mg PO ONCE PRN If a satisfactory response has not been obtained at 2 hours, a second dose may be administered Reported Tylenol (Acetaminophen) 325 Mg Tab 0 PO Q4H PRN Review of Systems Except as stated in HPI: all other systems reviewed are Neg General / Constitutional: No: Fever HENT: No: Lightheadedness Cardiovascular: Positive: Chest Pain or Discomfort, Dyspnea on exertion Respiratory: Positive: Shortness of Breath Gastrointestinal: Positive: Indigestion (History of indigestion, however, the symptoms are different), No: Nausea, Vomiting, Abdominal Pain Musculoskeletal: No: Myalgias, Weakness, Edema Neurologic: No: Dizziness Physical Exam Narrative GENERAL: Awake, alert, pleasant 31-year-old male who appears his stated age and is in no acute respiratory distress. SKIN: Focused skin assessment warm/dry. HEAD: Atraumatic. Normocephalic. EYES: No injection or drainage. ENT: No nasal bleeding or discharge. Mucous membranes pink and moist. Breath smells of tobacco. NECK: Trachea midline. No JVD. CARDIOVASCULAR: Regular rate and rhythm. No murmur appreciated. RESPIRATORY: No accessory muscle use. Clear to auscultation. Breath sounds equal bilaterally. GASTROINTESTINAL: Abdomen soft, non-tender, nondistended. Mild epigastric tenderness, however, pain is different than chest pain per patient report. MUSCULOSKELETAL: No obvious deformities. No clubbing. No cyanosis. No edema. NEUROLOGICAL: Awake and alert. No obvious cranial nerve deficits. Motor grossly within normal limits. Normal speech. PSYCHIATRIC: Appropriate mood and affect; insight and judgment normal. Data Data Last Documented VS Vital Signs Date Time Temp Pulse Resp B/P (MAP) Pulse Ox O2 Delivery O2 Flow Rate FiO2 06/03/17 16:29 84 16 124/73 (90) 96 Room Air 06/03/17 12:53 98.3 Orders Orders Electrocardiogram (06/03/17 12:59) Ckmb (Isoenzyme) Profile (06/03/17 12:59) Complete Blood Count With Diff (06/03/17 12:59) Comprehensive Metabolic Panel (06/03/17 12:59) Magnesium (Mg) (06/03/17 12:59) Prothrombin Time / Inr (Pt) (06/03/17 12:59) Act Partial Throm Time (Ptt) (06/03/17 12:59) Troponin I (06/03/17 12:59) Lipase (06/03/17 12:59) Ecg Monitoring (06/03/17 12:59) Bilateral Bp Monitoring (06/03/17 12:59) Iv Access Insert/Monitor (06/03/17 12:59) Oximetry (06/03/17 12:59) Oxygen Administration (06/03/17 12:59) Aspirin Chew (Aspirin Chew) (06/03/17 13:00) Morphine Inj (Morphine Inj) (06/03/17 13:00) Sodium Chloride 0.9% Flush (Ns Flush) (06/03/17 13:00) Nitroglycerin Sl (Nitrostat Sl) (06/03/17 13:00) Sodium Chlorid 0.9% 500 Ml Inj (Ns 500 M (06/03/17 13:00) Chest, Pa & Lat (06/03/17 12:59) Ondansetron Inj (Zofran Inj) (06/03/17 13:00) CKMB (06/03/17 13:00) CKMB% (06/03/17 13:00) Troponin I (06/03/17 16:00) Acetaminophen (Tylenol) (06/03/17 15:30) Labs Laboratory Tests Test 06/03/17 13:00 06/03/17 15:58 White Blood Count 6.4 TH/MM3 Red Blood Count 5.39 MIL/MM3 Hemoglobin 16.5 GM/DL Hematocrit 47.9 % Mean Corpuscular Volume 88.9 FL Mean Corpuscular Hemoglobin 30.5 PG Mean Corpuscular Hemoglobin Concent 34.3 % Red Cell Distribution Width 11.8 % Platelet Count 273 TH/MM3 Mean Platelet Volume 7.3 FL Neutrophils (%) (Auto) 58.7 % Lymphocytes (%) (Auto) 25.6 % Monocytes (%) (Auto) 10.8 % Eosinophils (%) (Auto) 3.5 % Basophils (%) (Auto) 1.4 % Neutrophils # (Auto) 3.8 TH/MM3 Lymphocytes # (Auto) 1.6 TH/MM3 Monocytes # (Auto) 0.7 TH/MM3 Eosinophils # (Auto) 0.2 TH/MM3 Basophils # (Auto) 0.1 TH/MM3 CBC Comment DIFF FINAL Differential Comment Prothrombin Time 10.2 SEC Prothromb Time International Ratio 1.0 RATIO Activated Partial Thromboplast Time 26.9 SEC Blood Urea Nitrogen 9 MG/DL Creatinine 0.87 MG/DL Random Glucose 104 MG/DL Total Protein 7.7 GM/DL Albumin 4.2 GM/DL Calcium Level 9.4 MG/DL Magnesium Level 1.8 MG/DL Alkaline Phosphatase 53 U/L Aspartate Amino Transf (AST/SGOT) 21 U/L Alanine Aminotransferase (ALT/SGPT) 52 U/L Total Bilirubin 0.4 MG/DL Sodium Level 138 MEQ/L Potassium Level 3.9 MEQ/L Chloride Level 104 MEQ/L Carbon Dioxide Level 26.8 MEQ/L Anion Gap 7 MEQ/L Estimat Glomerular Filtration Rate 102 ML/MIN Total Creatine Kinase 123 U/L Creatine Kinase MB 1.6 NG/ML Troponin I LESS THAN 0.02 NG/ML LESS THAN 0.02 NG/ML Lipase 243 U/L MDM Medical Decision Making Medical Screen Exam Complete: Yes Emergency Medical Condition: Yes Medical Record Reviewed: Yes Interpretation(s) EKG reveals normal sinus rhythm with no ischemic changes or ectopy noted. Laboratory Tests Test 06/03/17 13:00 06/03/17 15:58 White Blood Count 6.4 TH/MM3 Red Blood Count 5.39 MIL/MM3 Hemoglobin 16.5 GM/DL Hematocrit 47.9 % Mean Corpuscular Volume 88.9 FL Mean Corpuscular Hemoglobin 30.5 PG Mean Corpuscular Hemoglobin Concent 34.3 % Red Cell Distribution Width 11.8 % Platelet Count 273 TH/MM3 Mean Platelet Volume 7.3 FL Neutrophils (%) (Auto) 58.7 % Lymphocytes (%) (Auto) 25.6 % Monocytes (%) (Auto) 10.8 % Eosinophils (%) (Auto) 3.5 % Basophils (%) (Auto) 1.4 % Neutrophils # (Auto) 3.8 TH/MM3 Lymphocytes # (Auto) 1.6 TH/MM3 Monocytes # (Auto) 0.7 TH/MM3 Eosinophils # (Auto) 0.2 TH/MM3 Basophils # (Auto) 0.1 TH/MM3 CBC Comment DIFF FINAL Differential Comment Prothrombin Time 10.2 SEC Prothromb Time International Ratio 1.0 RATIO Activated Partial Thromboplast Time 26.9 SEC Blood Urea Nitrogen 9 MG/DL Creatinine 0.87 MG/DL Random Glucose 104 MG/DL Total Protein 7.7 GM/DL Albumin 4.2 GM/DL Calcium Level 9.4 MG/DL Magnesium Level 1.8 MG/DL Alkaline Phosphatase 53 U/L Aspartate Amino Transf (AST/SGOT) 21 U/L Alanine Aminotransferase (ALT/SGPT) 52 U/L Total Bilirubin 0.4 MG/DL Sodium Level 138 MEQ/L Potassium Level 3.9 MEQ/L Chloride Level 104 MEQ/L Carbon Dioxide Level 26.8 MEQ/L Anion Gap 7 MEQ/L Estimat Glomerular Filtration Rate 102 ML/MIN Total Creatine Kinase 123 U/L Creatine Kinase MB 1.6 NG/ML Troponin I LESS THAN 0.02 NG/ML LESS THAN 0.02 NG/ML Lipase 243 U/L Last Impressions Chest X-Ray 06/03/17 1768 Signed Impressions: Service Date/Time: Saturday, June 03, 2017 13:11 - CONCLUSION: Normal examination. Denny Jc Jr., MD Differential Diagnosis Differential diagnosis includes acute coronary syndrome, GERD, esophageal spasm , pericarditis, myocarditis, pancreatitis, gastritis, peptic ulcer disease, pneumothorax. Narrative Course IV was established, labs are drawn and sent, the patient was placed on cardiac telemetry monitoring and continuous pulse oximetry monitoring. EKG was ordered and interpreted. The patient was administered aspirin, morphine, Zofran, nitroglycerin sublingual, and IV fluids. Chest x-ray was obtained. Troponin and CPK level were sent to lab. The initial troponin and CPK were unremarkable. The patient does have one risk factor with smoking and possible family risk factors. I had a discussion with the patient regarding 23 hour observation for serial cardiac enzymes and stress test versus outpatient follow- up with serial cardiac enzymes in the emergency department. The patient states he does not want to be admitted to the hospital and does not want to have a stress test in the morning. Therefore, 3 hour second troponin level was ordered. The second troponin was negative. The patient is advised to take a baby aspirin daily and follow-up with a primary physician and/or air traffic control equipment repairer on an outpatient basis to have a stress test. Return if symptoms worsen or progress. Diagnosis Primary Impression: Chest pain Qualified Codes: R07.9 - Chest pain, unspecified Patient Instructions: General Instructions Additional Instructions: Take a baby aspirin daily. Follow-up with your primary physician and her air traffic control equipment repairer for outpatient stress test. Return if symptoms worsen or progress. Please provide the patient a copy of his x-ray results and lab results at discharge. Med/Other Pt SpecificInfo: Other (Take a baby aspirin daily) Disposition: 01 DISCHARGE HOME Condition: Stable Osmany Goncalves MD Jun 03, 2017 13:04
[2017-06-03 13:09] VITALS: O2SAT 95
[2017-06-03 13:14] VITALS: BP_SYST 131; BP_SYST 136; BP_DIAS 64; BP_DIAS 75
[2017-06-03 13:25] LABS: AUTOMATED NEUTROPHIL # 3.8 TH/MM3 (1.8-7.7); BASOPHIL # 0.1 TH/MM3 (0-0.2); BASOPHIL % 1.4 % (0.0-2.0); EOSINOPHIL # 0.2 TH/MM3 (0-0.4); EOSINOPHIL % 3.5 % (0.0-4.0); HEMATOCRIT 47.9 % (39.0-51.0); HEMOGLOBIN 16.5 GM/DL (13.0-17.0); LYMPH % 25.6 % (9.0-44.0); LYMPHOCYTE # 1.6 TH/MM3 (1.0-4.8); MEAN CELL VOLUME 88.9 FL (80.0-100.0); MEAN CORPUSCULAR HEMOGLOBIN 30.5 PG (27.0-34.0); MEAN CORPUSCULAR HGB CONC 34.3 % (32.0-36.0); MEAN PLATELET VOLUME 7.3 FL (7.0-11.0); MONO % 10.8 % (0.0-8.0); MONOCYTE # 0.7 TH/MM3 (0-0.9); NEUT % 58.7 % (16.0-70.0); PLATELET COUNT 273 TH/MM3 (150-450); RED BLOOD COUNT 5.39 MIL/MM3 (4.50-5.90); RED CELL DISTRIBUTION WIDTH 11.8 % (11.6-17.2); WHITE BLOOD COUNT 6.4 TH/MM3 (4.0-11.0)
[2017-06-03 13:38] LABS: CHLORIDE 104 MEQ/L (98-107); SODIUM (NA) 138 MEQ/L (136-145)
[2017-06-03 13:42] LABS: ALBUMIN 4.2 GM/DL (3.4-5.0); BICARBONATE 26.8 MEQ/L (21.0-32.0); BLOOD UREA NITROGEN 9 MG/DL (7-18); CALCIUM 9.4 MG/DL (8.5-10.1); GLUCOSE,RANDOM 104 MG/DL (74-106); MAGNESIUM 1.8 MG/DL (1.5-2.5)
[2017-06-03 13:43] LABS: PROTHROMBIN TIME - PATIENT 10.2 SEC (9.8-11.6)
[2017-06-03 13:45] LABS: ALT (GPT) 52 U/L (12-78); AST (GOT) 21 U/L (15-37); CREATININE 0.87 MG/DL (0.60-1.30); GLOMERULAR FILTRATION RATE 102 ML/MIN (>89)
[2017-06-03 13:47] LABS: TOTAL BILIRUBIN ADULT 0.4 MG/DL (0.2-1.0); TOTAL PROTEIN 7.7 GM/DL (6.4-8.2)
[2017-06-03 13:48] LABS: ALKALINE PHOSPHATASE 53 U/L (45-117)
[2017-06-03 13:50] LABS: TROPONIN I LESS THAN 0.02 NG/ML (0.02-0.05)
--- NOTE | 2017-06-03 13:57 | RADRPT ---
EXAM DATE/TIME: 06/03/2017 13:11 [facility] COMPARISON: No previous studies available for comparison. INDICATIONS : Chest pain. MEDICAL HISTORY : Gastroesophageal reflux disease. Irritable bowel syndrome. Smoker. SURGICAL HISTORY : None. ENCOUNTER: Initial ACUITY: 1 day PAIN SCORE: 2/10 LOCATION: Left chest FINDINGS: PA and lateral views of the chest demonstrate the lungs to be symmetrically aerated without evidence of mass, infiltrate or effusion. The cardiomediastinal contours are unremarkable. Osseous structure s are intact. CONCLUSION: Normal examination. Denny Jc Jr., MD on June 03, 2017 at 13:54 Board Certified Radiologist. This report was verified electronically.
[2017-06-03 14:00] VITALS: BP 140/73; PULSE 69; RESP 16; O2SAT 100
[2017-06-03] MEDS ORDERED: ACETAMINOPHEN 325 MG TAB PO ONE (15:30)
--- NOTE | 2017-06-03 15:57 | EKG ---
Date Performed: 06/03/2017 Time Performed: 12:46:05 PTAGE: 31 years EKG: Sinus rhythm NORMAL ECG PREVIOUS TRACING : 04/18/2016 18.22 No significant change from previous tracing noted. DOCTOR: Yuan Tran Interpretating Date/Time 06/03/2017 15:55:38
[2017-06-03 16:29] VITALS: BP 124/73; PULSE 84; RESP 16; O2SAT 96
== END 2017-06-03 16:56 | disposition home or self-care (01) ==
LOC: PHED 12:41
DX: R07.9 Chest pain, unspecified (principal); R06.02 Shortness of breath; K21.9 Gastro-esophageal reflux disease without esophagitis; F17.200 Nicotine dependence, unspecified, uncomplicated; Z87.19 Personal history of other diseases of the digestive system; Z88.8 Allergy status to other drugs, medicaments and biological substances
CPT/HCPCS: 71046; 80053; 82550; 82552; 83690; 83735; 84484; 85025; 85610; 85730; 93005; 96361; 96374; 96375; 99285; J2270; J2405; J7040